=== PATIENT | female | born 1995 | race Caucasian/White ===

== ENCOUNTER 2024-11-05 13:26 | Inpatient (IN) ==
--- NOTE | 2024-11-05 14:06 | Emergency Department Note ---
Impression & Plan Depression with suicidal ideation ED Provider Note NAME: VITALIY KUMAR AGE: 29 SEX: F : 1995 ARRIVES VIA: Walk-In INFORMANT: Patient, ED PROVIDER(S): Raudel Hadley MD CHIEF COMPLAINT: Suicidal ideation, depressed mood MEDICAL DECISION MAKING: Patient presents with the above. Blood work was obtained. Patient blood work showed a white count of 11 with a normal H&H. Platelet count of 428. The patient's kidney functions unremarkable with normal electrolytes. Urinalysis does not show evidence of blood or infection UPT negative. Salicylate Tylenol and alcohol negative. COVID-negative. UDS negative. Patient was seen medically cleared seen evaluated by psych employment case manager and referrals were made. Patient was accepted to 3 S. Discussion w/ other healthcare providers: None Prior /Outside records reviewed: None Differential diagnosis: Mood disorder, infection, hypoglycemia, electrolyte abnormalities, dehydration, medication side effect among others were considered. Diagnostics, as interpreted by me: ECG: None Medical decision rules: Suicide risk severity score Imaging studies: None HPI: Patient presents due to concern for suicidal ideation but without a specific plan. The patient states that she has been having more passive thoughts of SI. The patient states that her sleep has been poor appetite has been good. The patient does take Zoloft. Patient reports that she has been compliant. No recent changes or missed doses. Patient reportedly has been inpatient in the past. Patient denies any tobacco or drug use. Patient last used alcohol several days ago. Patient reportedly has been more irritated with her young children. PAST MEDICAL HISTORY: See Below PAST SURGICAL HISTORY: See Below SOCIAL HISTORY: See Below HOME MEDICATIONS: See Below ALLERGIES: See Below VITALS: See Below PHYSICAL EXAMINATION: GENERAL: NAD, non-toxic. EYE EXAM: Normal conjunctiva. PERRL, no anisocoria and EOM's grossly intact w/o pain. OROPHARYNX: Moist mucus membranes, grossly normal dentition. NECK: Trachea midline, no stridor. LUNGS: Clear to auscultation. Normal chest wall mechanics. HEART: NSR, no MRG. ABDOMEN: Abdomen soft, non-tender, no masses, no rebound or guarding. BACK: No CVA TTP. SKIN: No rashes and no bruising. UPPER EXTREMITIES: Upper extremities are grossly normal. LOWER EXTREMITIES: Grossly normal, no edema. NEURO EXAM: A&O x3, cranial nerves II-XII grossly intact, normal speech, moves all 4 extremities. Psych: SI, denies HI or AVH. Past Med/Surg History Problem List (Updated 11/05/24 @ 17:33 by Raudel Hadley MD) Depression with suicidal ideation (Acute) Social History Smoking Status: Never smoker Feels Safe at Home: Yes Gender Identity: Female Allergies Allergies Allergy/AdvReac Type Severity Reaction Status Date / Time No Known Allergies Allergy Unverified 11/05/24 15:26 Home Meds Home Medications Medication Instructions Recorded Confirmed sertraline 25 mg tablet (Zoloft) 25 mg PO DAILY 11/05/24 11/05/24 Results & Data (ED) Vital Signs Vital Signs - 24 hr 11/05/24 13:34 11/05/24 16:00 Temperature 36.7 C Temperature Source Temporal Artery Scan Pulse Rate 117 H Pulse Rate [Radial] 72 Pulse Rhythm Regular Pulse Strength Normal Respiratory Rate 20 18 Respiratory Effort / Characteristics Non-Labored Spontaneous Respiratory Depth Normal Blood Pressure 140/82 Blood Pressure [Right Arm] 104/59 L Blood Pressure Mean 101 Blood Pressure Mean [Right Arm] 74 Blood Pressure Position Sitting Pulse Oximetry 100 96 Oxygen Delivery Method Room Air Room Air Sepsis Recent Fever Within 48 Hours No Sepsis New/Unexplained Change in Mental Status N/A Sepsis Action Taken by Nursing No Action Required Home Medications Current Medication List: was personally reviewed by me Laboratory Data Attestation: I reviewed the patient's lab results. 11/05/24 13:56 11/05/24 13:56 Lab Results 11/05/24 11/05/24 Range/Units 13:40 13:56 WBC 11.59 H (4.8-10.8) K/ul RBC 5.13 (4.20-5.40) M/uL Hgb 15.6 (12.0-16.0) g/dl Hct 46.1 (37.0-47.0) % MCV 89.9 (80.0-100.0) fL MCH 30.4 (25.0-34.0) pg MCHC 33.8 (32.0-36.0) g/dL RDW Std Deviation 41.0 (36.4-46.3) fL RDW Coeff of [place] 12.5 (11.5-14.5) % Plt Count 420 H (130-400) K/uL MPV 8.8 L (9.4-12.4) fL Immature Gran % (Auto) 0.3 % Neut % (Auto) 79.9 % Lymph % (Auto) 13.4 % [place] % (Auto) 5.0 % Eos % (Auto) 0.9 % Baso % (Auto) 0.5 % Neut # (Auto) 9.26 H (1.40-6.50) K/uL Lymph # (Auto) 1.55 (1.20-3.40) K/uL [place] # (Auto) 0.58 (0.11-0.59) K/uL Eos # (Auto) 0.11 (0.00-0.50) K/uL Baso # (Auto) 0.06 (0.00-0.20) K/uL Immature Gran # (Auto) 0.03 (0.01-0.20) K/uL Sodium 140 (136-145) mmol/L Potassium 4.1 (3.5-5.1) mmol/L Chloride 106 (98-107) mmol/L Carbon Dioxide 26 (21-32) mmol/L Anion Gap 8 (3-11) BUN 9 (6-23) mg/dl Creatinine 0.75 (0.6-1.2) mg/dl Est Cr Clr Drug Dosing 85.9 ml/min eGFR 111.84 BUN/Creatinine Ratio 12.0 (10-20) Glucose 76 (70-99(Fasting)) mg/dl Calcium 9.5 (8.6-10.3) mg/dl Total Bilirubin 0.5 (0.2-1.0) mg/dl AST 21 (13-39) U/L ALT 23 (7-52) U/L Alkaline Phosphatase 40 (34-104) U/L Total Protein 7.7 (6.0-8.3) gm/dl Albumin 4.9 (3.4-5.0) gm/dl Globulin 2.8 (2.5-4.0) gm/dl Albumin/Globulin Ratio 1.8 (0.9-2) TSH 0.737 (0.300-4.500) uIu/ml Urine Color Yellow Urine Appearance Clear (Clear) Urine pH 7.0 (4.5-7.5) Ur Specific [place] 1.013 (1.000-1.030) Urine Protein Negative (Negative) Urine Glucose (UA) Negative (Negative) Urine Ketones Negative (Negative) Urine Blood Negative (Negative) Urine Nitrite Negative (Negative) Urine Bilirubin Negative (Negative) Urine Urobilinogen Negative (Negative) Ur Leukocyte Esterase Negative (Negative) Urine Test Negative (Negative) Salicylates < 3.0 L (3.0-30) mg/dl Urine Opiates Screen Neg (Neg) Ur Methadone, Qual Neg (Neg) Urine Fentanyl Screen Neg (Neg) Acetaminophen < 3 L (10-30) ug/ml Urine Barbiturates Neg (Neg) Ur Phencyclidine (PCP) Neg (Neg) U Amphetamin/Meth Scrn Neg (Neg) MDMA (Ecstasy) Screen Neg (Neg) U Benzodiazepines Scrn Neg (Neg) Ur Cocaine Metabolite Neg (Neg) U Marijuana (THC) Screen Neg (Neg) Ethyl Alcohol mg/dL < 10.0 (<10.0) mg/dl SARS-CoV-2, RNA, NAAT NEGATIVE (NEGATIVE) Discharge Plan Visit Data Chief Complaint: Mental Health Evaluation Stated Complaint: MENTAL BREAKDOWN ED Provider: Raudel Hadley Discharge Problem: Depression with suicidal ideation Forms Stand Alone Forms: [facility], Suicide Prevention Resources Prescriptions Prescriptions: No Action sertraline [Zoloft] 25 mg Tablet 25 mg PO DAILY Referrals Referrals: [facility] [Primary Care Provider] -
[2024-11-05 14:34] LABS: Basophils # (auto) 0.06 K/uL (0.00-0.20); Basophils % (auto) 0.5 %; Eosinophils # (auto) 0.11 K/uL (0.00-0.50); Eosinophils % (auto) 0.9 %; Hematocrit (blood only) 46.1 % (37.0-47.0); Hemoglobin 15.6 g/dl (12.0-16.0); Immature Granulocytes # (auto) 0.03 K/uL (0.01-0.20); Immature Granulocytes % (auto) 0.3 %; Lymphocytes # (auto) 1.55 K/uL (1.20-3.40); Lymphocytes % (auto) 13.4 %; Mean Corpuscular Hemoglobin 30.4 pg (25.0-34.0); Mean Corpuscular Hgb Conc 33.8 g/dL (32.0-36.0); Mean Corpuscular Volume 89.9 fL (80.0-100.0); Mean Platelet Volume 8.8 fL (9.4-12.4); Monocytes # (auto) 0.58 K/uL (0.11-0.59); Neutrophils # (auto) 9.26 K/uL (1.40-6.50); Neutrophils % (auto) 79.9 %; Platelet Count 420 K/uL (130-400); RDW Coefficient of Variation 12.5 % (11.5-14.5); Red Blood Count 5.13 M/uL (4.20-5.40); White Blood Count 11.59 K/ul (4.8-10.8)
[2024-11-05 14:43] LABS: Albumin Level 4.9 gm/dl (3.4-5.0); Bilirubin,Total 0.5 mg/dl (0.2-1.0); Calcium 9.5 mg/dl (8.6-10.3); Potassium 4.1 mmol/L (3.5-5.1)
[2024-11-05 14:48] LABS: Appearance Urine Clear (Clear); Bilirubin Urine Negative (Negative); Blood Urine Negative (Negative); Color Urine Yellow; Glucose Urine UA Negative (Negative); Ketones Urine Negative (Negative); Leukocyte Esterase Urine Negative (Negative); Nitrite Urine Negative (Negative); Protein Urine Negative (Negative); Specific Gravity Urine 1.013 (1.000-1.030); Urobilinogen Urine Negative (Negative)
[2024-11-05 14:49] LABS: Albumin Globulin Ratio 1.8 (0.9-2); Creatinine Clr Calc Pharmacy 85.9 ml/min; Globulin 2.8 gm/dl (2.5-4.0); Total Protein 7.7 gm/dl (6.0-8.3)
[2024-11-05 14:49] LABS: Pregnancy Test, Urine Negative (Negative)
[2024-11-05 15:04] LABS: Acetaminophen < 3 ug/ml (10-30); Salicylate < 3.0 mg/dl (3.0-30)
[2024-11-05 15:11] LABS: Thyroid Stimulating Hormone 0.737 uIu/ml (0.300-4.500)
[2024-11-05 15:19] LABS: Amphetamines+Metham, Urine Neg (Neg); Barbiturates, Urine Neg (Neg); Benzodiazepine, Urine Neg (Neg); Cocaine, Urine Neg (Neg); Fentanyl, Urine Neg (Neg); MDMA (Ecstacy), Urine Neg (Neg); Marijuana, Urine Neg (Neg); Methadone, Urine Neg (Neg); Opiate, Urine Neg (Neg); Phencyclidine, Urine Neg (Neg)
--- NOTE | 2024-11-05 22:48 | Emergency Department Note ---
ED Visit Note Patient was signed out to me at change of shift by Dr. Hadley. Patient was accepted for inpatient psychiatric care under 201 here [facility] in the behavioral health unit (3 S[address] 201 was signed by myself. Patient was transferred in stable condition for further care. .
[2024-11-05] MEDS ORDERED: BISMUTH SUBSALICYLATE 262 MG CHEW PO PRN (23:22)
[2024-11-05] MEDS ORDERED: ALUMINUM/MAGNESIUM SUSP 30 ML UDC PO PRN (23:22)
[2024-11-05] MEDS ORDERED: MAGNESIUM HYDROXIDE SUSP 30 ML UDC PO PRN (23:22)
[2024-11-05] MEDS ORDERED: SODIUM CHLORIDE 0.65% NA SOLN 45 ML (OCEAN) PRN (23:22)
[2024-11-05] MEDS: hydrOXYzine HCl 25 MG TAB PO PRN (23:56)
--- NOTE | 2024-11-06 09:56 | History & Physical ---
Date of Service November 06, 2024 Impression / Recommendations Impression VITALIY KUMAR is a 29-year-old woman who currently lives in [place] with her , and two children, has a history of trauma, depression and was admitted on 11/05/24 18:26 on a 201 voluntary commitment for depression and SI with plans. Diagnostically consistent with major depressive disorder, KEIRA, and likely complex PTSD. May be a component of BPD vs complex PTSD contributing to periods of anger when feeling overwhelmed. R/o OCD component. Discussed medication treatment options in detail. Discussed risks, benefits and alternatives. Patient would like to start and consented to increasing sertraline for MDD/KEIRA and starting mirtazapine for insomnia/depression/anxiety. Reviewed side effects including but not limited to: GI, GALEAS, sexual side effects, and counseled on black box warning of potential for emergence of or increased SI and need to let staff know should this occur or should they feel unsafe. Also discussed importance of seeking emergency care following discharge if this side effect occurs in the future. Also reviewed side effects including but not limited to sedation, increased appetite. Overall I spent a total of 75 minutes for this admission including review of chart records, review of labwork, direct evaluation of the patient, counseling the patient, ordering medication, risk assessment, discussion with the psychiatric liason RN and documentation in the electronic health record. (1) Depression with suicidal ideation: (2) MDD (major depressive disorder), recurrent episode, severe: (3) KEIRA (generalized anxiety disorder): (4) Post traumatic stress disorder (PTSD): Plan 11/06/2024: The patient was admitted to the [facility] unit) on q15 min checks (behavioral with suicide precautions) for safety. The patient will participate in group, recreational, and milieu therapies and will be offered additional individual and family sessions as clinically appropriate. -sertraline 50mg daily -mirtazapine 15mg HS -symptom questionnaires: Sandra BPD, trauma questionnaire, CARLOS score -outpt therapy referrals-ideally tf-CBT focus Inventory Assets Strengths: supportive relationships, willing to get treatment Needs: safety and stabilization, medication adjustment, additional coping skills, increased outpatient services Suicide Risk Level Suicide Risk Level: High-Moderate (q15 min suicide checks) (Si with plans prior to admission, but feels safe in the hospital, feels able to ask for support if needed) Risk Factors Assessment Male: No : Yes Do You Have Access To A Gun?: No (secured by , removed from home) Health Problems: No Mental Health Diagnoses: Yes Substance Use Disorders: No Previous Attempt: No Family History of Suicide: No Previous Psychiatric Hospitalization: Yes Hopelessness: Yes Protective Factors Assessment Buddhism Beliefs: Yes : Yes Responsible for Young Children: Yes 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 Chief Complaint "It's been so hard to control my mind, it's like war in my head". History of Present Illness She presents for psychiatric admission for worsening depression and SI with multiple possible plans. She notes "I just need my brain to calm down, it just goes and goes and goes". She notes "I'm not even fit to be around my kids right now because the smallest thing can trigger me to just stop". She notes how deeply she loves her children but feels they've felt like they have to "step on eggshells around me". She describes she can be quick to anger and that "I have to be right" and can be impulsive but also notes that she has become very irritable as the depression has worsened. She notes "I have a war in my head all day every day", she notes the thoughts are often about her being worthless or worrying that her will leave her. Describes that "recently it's been tearing down myself with my own mind". She notes by evening "I'm worn out and I can't do it anymore". Her depression has been worsening over the last year and over the last six months has significantly intensified. She endorses depressive symptoms including anhedonia, decreased motivation, self-guilt, helplessness, hopelessness, decreased energy, decreased appetite, and decreased sleep typically about 3 hours with sleep onset insomnia and multiple awakenings. SI started about 6 months ago but really worsened to the point of daily thoughts over the last month with thoughts of shooting herself or crashing the car. She has been having thoughts that her kids would be "better off without" her. She also endorses symptoms of anxiety including generalized worries, shakiness, easily overwhelmed and history of panic attacks but none recently. Sometimes gets sharp chest pain with intense anxiety. History of significant trauma and sometimes will have dreams and wake up in a startle. This has worsened as the depression has intensified and typically occurring about three times per week. She was recently prescribed sertraline about 1.5 weeks ago, she hasn't noticed any side effects nor benefits so far. Psychiatric ROS notable for no current nor history of symptoms of tsering, psychosis. History of difficulty eating at school when bullied and would often avoid breakfast and sometimes would throw up due to distress from the bullying. History of self-harm by cutting and biting, last occurred many years ago. Past Psychiatric History Previous Psych History: depression in youth related to trauma, worsened mood after her children were born Current Psychiatric Diagnosis: Unspecified depressive d/o Outpatient Services: [facility] no current therapist Previous Psych Admissions: [facility] in 2017 for SI Do You Have Access To A Gun?: No (secured by , removed from home) History of Previous Suicide Attempt: No Past Medication Trials: hx Seroquel, [place] and Lexapro--stopped in 2018, she recalls "I was mostly in a zoombie mode" Started sertraline 25 mg about 1.5 weeks ago Past Head Trauma/Neuro History possible concussion after an ice skating accident in third grade Allergies Allergy/AdvReac Type Severity Reaction Status Date / Time No Known Allergies Allergy Unverified 11/05/24 15:26 Home Medications Medication Instructions Recorded Confirmed Type sertraline 25 mg tablet (Zoloft) 25 mg PO DAILY 11/05/24 11/05/24 History Family History Family History of: Doesn't Know Alcohol History Hx of Alcohol Use Over the Past 12 Months: Yes (1-2 seltzers) AUDIT Total Score: 5 hasn't had any alcohol in about a week, sometimes will drink casually in the evenings recently about 5 evenings per week. She recently felt like she was using alcohol to relax and "be happy" Smoking Use Have You Smoked or Used Tobacco Products in the Last 30 Days: No Smoking Status: Former smoker (quit vaping about 2 weeks ago) Substance History Hx of Prescription Med Misuse Over the Past 12 Months: No Hx of Over the Counter Med Misuse Over the Past 12 Months: No Hx of Inhalent Misuse Over the Past 12 Months: No Hx of Organic Substance Use Over the Past 12 Months: No Hx of Illegal Substances/Street Drug Use Over Past 12 Months: No Problems as a Result of Past Substance Use: None Identified Personal History Living Arrangements: Home Childhood: Raised as a M[employer]onite, early life trauma, no longer in contact with her family. Marital Status: Number Of Children: 2-ages 4 & 2 Beliefs That Will Affect Care: None Hx Traumatic Life Events: Yes (early life trauma) Patient History Social History Smoking Status: Former smoker (quit vaping about 2 weeks ago) Preferred Language: Uzbek Communication Ability: Effective Insert Molding Operator Required: No Beliefs That Will Affect Care: None Feels Safe at Home: Yes Gender Identity: Female Assistive Devices: None Review of Systems Review of Systems: All systems reviewed & are unremarkable except as noted in HPI & below Physical Exam Psychiatric: Orientation: alert and oriented x 3 Apperance: appropriately dressed and appropriately groomed Eye Contact: good eye contact Motor Behavior: no abnormal motor movements Speech: normal rate/rhythm/volume of speech Affect: + depressed affect, + anxious affect and + tearful affect Mood: + depressed mood and + anxious mood Thought Process: goal directed thought process Thought Content: + cognitive distortions, reality based without delusions, + hopelessness and + worthlessness Suicidal Thoughts: denies suicidal intent; + reports suicidal thoughts and + reports suicidal plan (none for hospital, outside multiple plans) Homicidal Thoughts: denies homicidal thoughts Hallucinations: no auditory hallucinations and no visual hallucinations Cognition: recent memory grossly intact, remote memory grossly intact, attention grossly intact and language grossly intact Estimated Intelligence: consistent with education level Insight: + fair insight Judgment: + fair judgement Vital Signs (Past 24 Hours): Last Vital Signs Temp 37.0 C 11/06/24 06:25 Pulse 51 L 11/06/24 06:25 Resp 18 11/06/24 06:25 BP 104/69 11/06/24 06:27 Pulse Ox 97 11/06/24 06:25 O2 Del Method Room Air 11/06/24 06:25 Exam Statement: A physical exam was performed in the ED by Dr. Hadley for the purposes of medical clearance. I accept that physical as correct and adequate for the purposes of the inpatient physical exam. Results & Data ([facility]) Laboratory Results Laboratory Results - last 24 hr 11/05/24 11/05/24 13:40 13:56 WBC 11.59 H RBC 5.13 Hgb 15.6 Hct 46.1 MCV 89.9 MCH 30.4 MCHC 33.8 RDW Std Deviation 41.0 RDW Coeff of [place] 12.5 Plt Count 420 H MPV 8.8 L Immature Gran % (Auto) 0.3 Neut % (Auto) 79.9 Lymph % (Auto) 13.4 [place] % (Auto) 5.0 Eos % (Auto) 0.9 Baso % (Auto) 0.5 Neut # (Auto) 9.26 H Lymph # (Auto) 1.55 [place] # (Auto) 0.58 Eos # (Auto) 0.11 Baso # (Auto) 0.06 Immature Gran # (Auto) 0.03 Sodium 140 Potassium 4.1 Chloride 106 Carbon Dioxide 26 Anion Gap 8 BUN 9 Creatinine 0.75 Est Cr Clr Drug Dosing 85.9 eGFR 111.84 BUN/Creatinine Ratio 12.0 Glucose 76 Calcium 9.5 Total Bilirubin 0.5 AST 21 ALT 23 Alkaline Phosphatase 40 Total Protein 7.7 Albumin 4.9 Globulin 2.8 Albumin/Globulin Ratio 1.8 TSH 0.737 Urine Color Yellow Urine Appearance Clear Urine pH 7.0 Ur Specific [place] 1.013 Urine Protein Negative Urine Glucose (UA) Negative Urine Ketones Negative Urine Blood Negative Urine Nitrite Negative Urine Bilirubin Negative Urine Urobilinogen Negative Ur Leukocyte Esterase Negative Urine Test Negative Salicylates < 3.0 L Urine Opiates Screen Neg Ur Methadone, Qual Neg Urine Fentanyl Screen Neg Acetaminophen < 3 L Urine Barbiturates Neg Ur Phencyclidine (PCP) Neg U Amphetamin/Meth Scrn Neg MDMA (Ecstasy) Screen Neg U Benzodiazepines Scrn Neg Ur Cocaine Metabolite Neg U Marijuana (THC) Screen Neg Ethyl Alcohol mg/dL < 10.0 SARS-CoV-2, RNA, NAAT NEGATIVE Current Inpatient Medications Current Inpatient Medications: Current Inpatient Medications Acetaminophen (Acetaminophen 325 Mg Tab) 650 mg PO Q4H PRN PRN Reason: Headache or Minor Fever Stop: 12/05/24 23:21 Al Hydrox/Mg Hydrox/Simethicone (Aluminum/Magnesium Susp 30 Ml Udc) 30 ml PO Q4H PRN PRN Reason: GI Upset Stop: 12/05/24 23:21 Bismuth Subsalicylate (Bismuth Subsalicylate 262 Mg Chew) 2 tab PO Q30M PRN PRN Reason: Loose Stool/Diarrhea Stop: 12/05/24 23:21 Hydroxyzine HCl (Hydroxyzine Hcl 25 Mg Tab) 50 mg PO HSZ PRN PRN Reason: Insomnia Stop: 12/05/24 23:21 Last Admin: 11/05/24 23:56 Dose: 50 mg Hydroxyzine HCl (Hydroxyzine Hcl 25 Mg Tab) 25 mg PO Q4H PRN PRN Reason: Anxiety Stop: 12/05/24 23:21 Magnesium Hydroxide (Magnesium Hydroxide Susp 30 Ml Udc) 30 ml PO DAILY PRN PRN Reason: Constipation Stop: 12/05/24 23:21 Sodium Chloride (Sodium Chloride 0.65% Na Soln 45 Ml ([place])) 1 - 2 sprays NA PRN PRN PRN Reason: Nasal Dryness/Congestion Stop: 12/05/24 23:21
[2024-11-06] MEDS: SERTRALINE HCL 50 MG TABLET PO SCH (12:45)
[2024-11-06] MEDS: MIRTAZAPINE TAB 15 MG TAB PO SCH (20:55)
--- NOTE | 2024-11-07 09:36 | Psychiatric Progress Note ---
Date of Service November 07, 2024 Impression / Recommendations Impression VITALIY KUMAR is a 29-year-old woman who currently lives in [place] with her , and two children, has a history of trauma, depression and was admitted on 11/05/24 18:26 on a 201 voluntary commitment for depression and SI with plans. Diagnostically consistent with major depressive disorder, KEIRA, and likely complex PTSD. May be a component of BPD vs complex PTSD contributing to periods of anger when feeling overwhelmed. R/o OCD component. A: Mood slightly more hopeful but still with severe depression, anxiety and SI. Tolerating medication changes, slept well with addition of mirtazapine which is making her a little bit better. Reviewed symptom questionnaires, consistent with significant component of symptoms from past trauma, CARLOS score of 5. BPD screen positive but largely due to overlap with trauma symptoms so felt to be more consistent with complex PTSD. Overall, I spent a total of 35 minutes on this case including meeting with the patient, reviewing the chart, nursing report, multidisciplinary team meeting, orders, and documentation. (1) Depression with suicidal ideation: (2) MDD (major depressive disorder), recurrent episode, severe: (3) KEIAR (generalized anxiety disorder): (4) Post traumatic stress disorder (PTSD): Plan 11/07/2024: Continue current medications and tx plan 11/06/2024: The patient was [facility] to the [facility] on q15 min checks (behavioral with suicide precautions) for safety. The patient will participate in group, recreational, and milieu therapies and will be offer ed additional individual and family sessions as clinically appropriate. -sertraline 50mg daily -mirtazapine 15mg HS -symptom questionnaires: Sandra BPD, trauma questionnaire, CARLOS score -outpt therapy referrals-ideally tf-CBT focus Inventory Assets Strengths: supportive relationships, willing to get treatment Needs: safety and stabilization, medication adjustment, additional coping skills, increased outpatient services Suicide Risk Level Suicide Risk Level: High-Moderate (q15 min suicide checks) (Si with plans prior to admission, but feels safe in the hospital, feels able to ask for support if needed) Suicide Risk Level Comments: Risk Factors Assessment Male: No : Yes Do You Have Access To A Gun?: No Health Problems: No Mental Health Diagnoses: Yes Substance Use Disorders: No Previous Attempt: No Family History of Suicide: No Previous Psychiatric Hospitalization: Yes Hopelessness: Yes Protective Factors Assessment Muslim Beliefs: Yes : Yes Responsible for Young Children: Yes 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 Chief Complaint "I was in denial of how bad I was". Review of Systems Sleep Information Total Hours of Sleep: 7 Meal Information Percent Meal Consumed - Breakfast: 100 Percent Meal Consumed - Lunch: 100 Percent Meal Consumed - Dinner: 100 Subjective Subjective Patient was seen & assessed and interval progress reviewed with nursing. Facetimed her kids this morning. Rated her mood as "lonely, hopeful and nervous". Has been quiet but attending groups and out of her room. Today reports her mood is "more hopeful". She reflects on struggling with the stigma of being in the hospital and also notes "I was in denial of how bad I was". She is glad to be here and is focusing on thinking about her mental health and treating her brain just like she would other physical illnesses. She is glad to be "eating and sleeping" better after the addition of mirtazapine last night. She slept well without any awakenings overnight. SI is still present but " a little less today". Notes she had a thought of how if the windows opened here she would be able to jump this morning. Reviewed symptom questionnaires and prevalence of trauma symptoms. Physical Exam Psychiatric Orientation: alert and oriented x 3 Apperance: appropriately dressed and appropriately groomed Eye Contact: good eye contact Motor Behavior: no abnormal motor movements Speech: normal rate/rhythm/volume of speech Affect: + anxious affect and + constricted affect Mood: + depressed mood and + anxious mood Thought Process: goal directed thought process Thought Content: + cognitive distortions, reality based without delusions and + worthlessness Suicidal Thoughts: denies suicidal intent; + reports suicidal thoughts and + re ports suicidal plan (none for hospital, outside multiple plans) Homicidal Thoughts: denies homicidal thoughts Hallucinations: no auditory hallucinations and no visual hallucinations Cognition: recent memory grossly intact, remote memory grossly intact, attention grossly intact and language grossly intact Estimated Intelligence: consistent with education level Insight: + fair insight Judgment: + fair judgement Vital Signs (Past 24 Hours) Last Vital Signs Temp 36.4 C L 11/07/24 06:00 Pulse 5 L 11/07/24 06:00 Resp 16 11/07/24 06:00 BP 108/72 11/07/24 06:08 Pulse Ox 98 11/07/24 06:00 O2 Del Method Room Air 11/07/24 06:00 Results & Data ([facility]) Current Inpatient Medications Current Inpatient Medications: Current Inpatient Medications Acetaminophen (Acetaminophen 325 Mg Tab) 650 mg PO Q4H PRN PRN Reason: Headache or Minor Fever Stop: 12/05/24 23:21 Al Hydrox/Mg Hydrox/Simethicone (Aluminum/Magnesium Susp 30 Ml Udc) 30 ml PO Q4H PRN PRN Reason: GI Upset Stop: 12/05/24 23:21 Bismuth Subsalicylate (Bismuth Subsalicylate 262 Mg Chew) 2 tab PO Q30M PRN PRN Reason: Loose Stool/Diarrhea Stop: 12/05/24 23:21 Hydroxyzine HCl (Hydroxyzine Hcl 25 Mg Tab) 50 mg PO HSZ PRN PRN Reason: Insomnia Stop: 12/05/24 23:21 Last Admin: 11/05/24 23:56 Dose: 50 mg Hydroxyzine HCl (Hydroxyzine Hcl 25 Mg Tab) 25 mg PO Q4H PRN PRN Reason: Anxiety Stop: 12/05/24 23:21 Magnesium Hydroxide (Magnesium Hydroxide Susp 30 Ml Udc) 30 ml PO DAILY PRN PRN Reason: Constipation Stop: 12/05/24 23:21 Mirtazapine (Mirtazapine Tab 15 Mg Tab) 15 mg PO HS TREVON Stop: 12/06/24 21:59 Last Admin: 11/06/24 20:55 Dose: 15 mg Sertraline HCl (Sertraline Hcl 50 Mg Tablet) 50 mg PO DAILY TREVON Stop: 12/06/24 12:29 Last Admin: 11/07/24 08:44 Dose: 50 mg Sodium Chloride (Sodium Chloride 0.65% Na Soln 45 Ml ([place])) 1 - 2 sprays NA PRN PRN PRN Reason: Nasal Dryness/Congestion Stop: 12/05/24 23:21 Mental Health & Subst Abuse Tx Therapist Name of Therapist: Being set up with [facility] [facility] Name of [facility]: None
[2024-11-07] MEDS: hydrOXYzine HCl 25 MG TAB PO PRN (13:32)
--- NOTE | 2024-11-08 09:05 | Psychiatric Progress Note ---
Date of Service November 08, 2024 Impression / Recommendations Impression VITALIY KUMAR is a 29-year-old woman who currently lives in [place] with her , and two children, has a history of trauma, depression and was admitted on 11/05/24 18:26 on a 201 voluntary commitment for depression and SI with plans. Diagnostically consistent with major depressive disorder, KEIRA, and likely complex PTSD. May be a component of BPD vs complex PTSD contributing to periods of anger when feeling overwhelmed. R/o OCD component. A:Mood gradually improving, showing more affect today with a few smiles, tolerating medications and finding them especially helpful for sleep and appetite. Processing beliefs about mental health and ways to set boundaries. Overall, I spent a total of 35 minutes on this case including meeting with the patient, reviewing the chart, nursing report, multidisciplinary team meeting, orders, and documentation. (1) Depression with suicidal ideation: (2) MDD (major depressive disorder), recurrent episode, severe: (3) KEIRA (generalized anxiety disorder): (4) Post traumatic stress disorder (PTSD): Plan 11/08/2024: Continue current medications and tx plan. 11/07/2024: Continue current medications and tx plan 11/06/2024: The patient was admitted to the [facility]) on q15 min checks (behavioral with suicide precautions) for safety. The patient will participate in group, recreational, and milieu therapies and will be offered additional individual and family sessions as clinically appropriate. -sertraline 50mg daily -mirtazapine 15mg HS -symptom questionnaires: Sandra BPD, trauma questionnaire, CARLOS score -outpt therapy referrals-ideally tf-CBT focus Inventory Assets Strengths: supportive relationships, willing to get treatment Needs: safety and stabilization, medication adjustment, additional coping skills, increased outpatient services Suicide Risk Level Suicide Risk Level: Moderate (q15 min suicide checks) (SI with plans prior to admission, but mood improving, SI lessening, feels safe in the hospital, feels able to ask for support if needed) Suicide Risk Level Comments: Risk Factors Assessment Male: No : Yes Do You Have Access To A Gun?: No Health Problems: No Mental Health Diagnoses: Yes Substance Use Disorders: No Previous Attempt: No Family History of Suicide: No Previous Psychiatric Hospitalization: Yes Hopelessness: Yes Protective Factors Assessment Mosque Beliefs: Yes : Yes Responsible for Young Children: Yes 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 Chief Complaint "Pretty good". Review of Systems Sleep Information Total Hours of Sleep: 7 Meal Information Percent Meal Consumed - Breakfast: 100 Percent Meal Consumed - Lunch: 100 Percent Meal Consumed - Dinner: 100 Subjective Subjective Patient was seen & assessed and interval progress reviewed with treatment team. She got very anxious and was craving alcohol in anticipation of potential visit of her mother and sister. She got a prn Vistaril. Rated her mood as "content and calm". Continues to sleep well since mirtazapine was started. She is feeling more hopeful. More affect today with some smiles. Processed how she is trying to set more boundaries and impact of her upbringing and family's beliefs about mental health adding to the stigma of her discussing her symptoms and seeking treatment. She discussed how within the [facility] and [facility], mental health conditions are often viewed as being caused by something the individual did wrong or because they are not following all the rules. She's working to validate her emotions and remind herself that she did not cause her depression. Physical Exam Psychiatric Orientation: alert and oriented x 3 Apperance: appropriately dressed and appropriately groomed Eye Contact: good eye contact Motor Behavior: no abnormal motor movements Speech: normal rate/rhythm/volume of speech Affect: + anxious affect Mood: + depressed mood and + anxious mood Thought Process: goal directed thought process Thought Content: + cognitive distortions, reality based without delusions and + worthlessness Suicidal Thoughts: denies suicidal plan and denies suicidal intent; + reports suicidal thoughts (lessening) Homicidal Thoughts: denies homicidal thoughts Hallucinations: no auditory hallucinations and no visual hallucinations Cognition: recent memory grossly intact, remote memory grossly intact, attention grossly intact and language grossly intact Estimated Intelligence: consistent with education level Insight: + fair insight Judgment: + fair judgement Vital Signs (Past 24 Hours) Last Vital Signs Temp 36.6 C 11/08/24 06:27 Pulse 63 11/08/24 06:29 Resp 16 11/08/24 06:27 BP 93/61 L 11/08/24 06:29 Pulse Ox 99 11/08/24 06:27 O2 Del Method Room Air 11/08/24 06:27 Results & Data ([facility]) Current Inpatient Medications Current Inpatient Medications: Current Inpatient Medications Acetaminophen (Acetaminophen 325 Mg Tab) 650 mg PO Q4H PRN PRN Reason: Headache or Minor Fever Stop: 12/05/24 23:21 Al Hydrox/Mg Hydrox/Simethicone (Aluminum/Magnesium Susp 30 Ml Udc) 30 ml PO Q4H PRN PRN Reason: GI Upset Stop: 12/05/24 23:21 Bismuth Subsalicylate (Bismuth Subsalicylate 262 Mg Chew) 2 tab PO Q30M PRN PRN Reason: Loose Stool/Diarrhea Stop: 12/05/24 23:21 Hydroxyzine HCl (Hydroxyzine Hcl 25 Mg Tab) 50 mg PO HSZ PRN PRN Reason: Insomnia Stop: 12/05/24 23:21 Last Admin: 11/05/24 23:56 Dose: 50 mg Hydroxyzine HCl (Hydroxyzine Hcl 25 Mg Tab) 25 mg PO Q4H PRN PRN Reason: Anxiety Stop: 12/05/24 23:21 Last Admin: 11/07/24 13:32 Dose: 25 mg Magnesium Hydroxide (Magnesium Hydroxide Susp 30 Ml Udc) 30 ml PO DAILY PRN PRN Reason: Constipation Stop: 12/05/24 23:21 Mirtazapine (Mirtazapine Tab 15 Mg Tab) 15 mg PO HS TREVON Stop: 12/06/24 21:59 Last Admin: 11/07/24 20:52 Dose: 15 mg Sertraline HCl (Sertraline Hcl 50 Mg Tablet) 50 mg PO DAILY TREVON Stop: 12/06/24 12:29 Last Admin: 11/08/24 08:07 Dose: 50 mg Sodium Chloride (Sodium Chloride 0.65% Na Soln 45 Ml ([place])) 1 - 2 sprays NA PRN PRN PRN Reason: Nasal Dryness/Congestion Stop: 12/05/24 23:21 Mental Health & Subst Abuse Tx Therapist Name of Therapist: Being set up with [facility] Name of [facility]: None
--- NOTE | 2024-11-09 09:01 | Psychiatric Progress Note ---
Date of Service November 09, 2024 Impression / Recommendations Impression VITALIY KUMAR is a 29-year-old woman who currently lives in [place] with her , and two children, has a history of trauma, depression and was admitted on 11/05/24 18:26 on a 201 voluntary commitment for depression and SI with plans. Diagnostically consistent with major depressive disorder, KEIRA, and likely complex PTSD. May be a component of BPD vs complex PTSD contributing to periods of anger when feeling overwhelmed. R/o OCD component. A:Mood improving, still with depression and anxiety but lessening. Tolerating medications well without side effects. Discussed ways to challenge anxious thoughts and utilize CBT skills. Overall, I spent a total of 25 minutes on this case including meeting with the patient, reviewing the chart, nursing report, multidisciplinary team meeting, orders, and documentation. (1) Depression with suicidal ideation: (2) MDD (major depressive disorder), recurrent episode, severe: (3) KEIRA (generalized anxiety disorder): (4) Post traumatic stress disorder (PTSD): Plan 11/09/2024: Continue current medications and tx plan. SW working on options for outpatient therapy-running into barriers of excessively long wait lists due to insurance coverage 11/08/2024: Continue current medications and tx plan. 11/07/2024: Continue current medications and tx plan 11/06/2024: The patient was admitted to the [facility] ([facility]) on q15 min checks (behavioral with suicide precautions) for safety. The patient will participate in group, recreational, and milieu therapies and will be offered additional individual and family sessions as clinically appropriate. -sertraline 50mg daily -mirtazapine 15mg HS -symptom questionnaires: Sandra BPD, trauma questionnaire, CARLOS score -outpt therapy referrals-ideally tf-CBT focus Inventory Assets Strengths: supportive relationships, willing to get treatment Needs: safety and stabilization, medication adjustment, additional coping skills, increased outpatient services Suicide Risk Level Suicide Risk Level: Moderate (q15 min suicide checks) (SI with plans prior to admission, but mood improving, SI lessening, feels safe in the hospital, feels able to ask for support if needed) Suicide Risk Level Comments: Risk Factors Assessment Male: No : Yes Do You Have Access To A Gun?: No Health Problems: No Mental Health Diagnoses: Yes Substance Use Disorders: No Previous Attempt: No Family History of Suicide: No Previous Psychiatric Hospitalization: Yes Hopelessness: Yes Protective Factors Assessment Alevism Beliefs: Yes : Yes Responsible for Young Children: Yes 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 Chief Complaint "Good". Review of Systems Sleep Information Total Hours of Sleep: 6.5 Meal Information Percent Meal Consumed - Breakfast: 100 Percent Meal Consumed - Lunch: 100 Percent Meal Consumed - Dinner: 100 Subjective Subjective Patient was seen & assessed and interval progress reviewed with nursing and social work. Attending groups. Facetimed with her last evening. Reported her mood as "tired but happy" last evening. Today reports some anxiety this morning related to not being to reach her kids grandmother on the phone to see how they are doing which brings up fears about their safety. But she was able to use coping skills whereas prior to admission she reports this would have caused her thoughts to spiral all day. She continues to find the medications very helpful. Feeling more hopeful. Some SI yesterday, none so far today. Overall feels that she is "so much calmer". Physical Exam Psychiatric Orientation: alert and oriented x 3 Apperance: appropriately dressed and appropriately groomed Eye Contact: good eye contact Motor Behavior: no abnormal motor movements Speech: normal rate/rhythm/volume of speech Affect: + anxious affect Mood: + depressed mood and + anxious mood Thought Process: goal directed thought process Thought Content: + cognitive distortions, reality based without delusions and + worthlessness Suicidal Thoughts: denies suicidal plan and denies suicidal intent; + reports suicidal thoughts (fleeting yesterday, none today ) Homicidal Thoughts: denies homicidal thoughts Hallucinations: no auditory hallucinations and no visual hallucinations Cognition: recent memory grossly intact, remote memory grossly intact, attention grossly intact and language grossly intact Estimated Intelligence: consistent with education level Insight: + fair insight Judgment: + fair judgement Vital Signs (Past 24 Hours) Last Vital Signs Temp 36.9 C 11/09/24 06:47 Pulse 76 11/09/24 06:48 Resp 16 11/09/24 06:47 BP 108/66 11/09/24 06:48 Pulse Ox 99 11/08/24 06:27 O2 Del Method Room Air 11/08/24 06:27 Results & Data ([facility]) Current Inpatient Medications Current Inpatient Medications: Current Inpatient Medications Acetaminophen (Acetaminophen 325 Mg Tab) 650 mg PO Q4H PRN PRN Reason: Headache or Minor Fever Stop: 12/05/24 23:21 Al Hydrox/Mg Hydrox/Simethicone (Aluminum/Magnesium Susp 30 Ml Udc) 30 ml PO Q4H PRN PRN Reason: GI Upset Stop: 12/05/24 23:21 Bismuth Subsalicylate (Bismuth Subsalicylate 262 Mg Chew) 2 tab PO Q30M PRN PRN Reason: Loose Stool/Diarrhea Stop: 12/05/24 23:21 Hydroxyzine HCl (Hydroxyzine Hcl 25 Mg Tab) 50 mg PO HSZ PRN PRN Reason: Insomnia Stop: 12/05/24 23:21 Last Admin: 11/05/24 23:56 Dose: 50 mg Hydroxyzine HCl (Hydroxyzine Hcl 25 Mg Tab) 25 mg PO Q4H PRN PRN Reason: Anxiety Stop: 12/05/24 23:21 Last Admin: 11/07/24 13:32 Dose: 25 mg Magnesium Hydroxide (Magnesium Hydroxide Susp 30 Ml Udc) 30 ml PO DAILY PRN PRN Reason: Constipation Stop: 12/05/24 23:21 Mirtazapine (Mirtazapine Tab 15 Mg Tab) 15 mg PO HS TREVON Stop: 12/06/24 21:59 Last Admin: 11/08/24 21:17 Dose: 15 mg Sertraline HCl (Sertraline Hcl 50 Mg Tablet) 50 mg PO DAILY TREVON Stop: 12/06/24 12:29 Last Admin: 11/09/24 08:10 Dose: 50 mg Sodium Chloride (Sodium Chloride 0.65% Na Soln 45 Ml ([place])) 1 - 2 sprays NA PRN PRN PRN Reason: Nasal Dryness/Congestion Stop: 12/05/24 23:21 Mental Health & Subst Abuse Tx Psychiatrist Name of Psychiatrist: Rosa Grissom Psychiatrist's Date Of Appointment With Psychiatric Provider: 11/16/24 Time of Appointment with Psychiatrist: 1:00pm Psychiatric Appointment Comment: rescheduled for longer appt. time (hospital f/u) Therapist Name of Therapist: Janeen Yoo Therapist's Therapy Appointment Comment: Rayne was not aware of referral; left message to confirm waitlist Informatics Analyst Name of Informatics Analyst: None
--- NOTE | 2024-11-10 09:00 | Psychiatric Progress Note ---
Date of Service November 10, 2024 Impression / Recommendations Impression VITALIY KUMAR is a 29-year-old woman who currently lives in [place] with her , and two children, has a history of trauma, depression and was admitted on 11/05/24 18:26 on a 201 voluntary commitment for depression and SI with plans. Diagnostically consistent with major depressive disorder, KEIRA, and likely complex PTSD. May be a component of BPD vs complex PTSD contributing to periods of anger when feeling overwhelmed. R/o OCD component. A: Mood improving, still some fleeting SI but becoming easier to distract from. More future-oriented and hopeful. Overall, I spent a total of 30 minutes on this case including meeting with the patient, reviewing the chart, nursing report, multidisciplinary team meeting, orders, and documentation. (1) Depression with suicidal ideation: (2) MDD (major depressive disorder), recurrent episode, severe: (3) KEIRA (generalized anxiety disorder): (4) Post traumatic stress disorder (PTSD): Plan 11/10/2024: Continue current medications. Ongoing difficulty finding an outpatient therapist that has openings and accepts her insurance 11/09/2024: Continue current medications and tx plan. SW working on options for outpatient therapy-running into barriers of excessively long wait lists due to insurance coverage 11/08/2024: Continue current medications and tx plan. 11/07/2024: Continue current medications and tx plan 11/06/2024: The patient was admitted to the [facility] ([facility] [place] [facility]) on q15 min checks (behavioral with suicide precautions) for safety. The patient will participate in group, recreational, and milieu therapies and will be offered additional individual and family sessions as clinically appropriate. -sertraline 50mg daily -mirtazapine 15mg HS -symptom questionnaires: Sandra BPD, trauma questionnaire, CARLOS score -outpt therapy referrals-ideally tf-CBT focus Inventory Assets Strengths: supportive relationships, willing to get treatment Needs: safety and stabilization, medication adjustment, additional coping skills, increased outpatient services Suicide Risk Level Suicide Risk Level: Moderate (q15 min suicide checks) (SI with plans prior to admission, but mood improving, SI lessening, feels safe in the hospital, feels able to ask for support if needed) Suicide Risk Level Comments: Risk Factors Assessment Male: No : Yes Do You Have Access To A Gun?: No Health Problems: No Mental Health Diagnoses: Yes Substance Use Disorders: No Previous Attempt: No Family History of Suicide: No Previous Psychiatric Hospitalization: Yes Hopelessness: Yes Protective Factors Assessment Gnosticist Beliefs: Yes : Yes Responsible for Young Children: Yes 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 Chief Complaint "A little tired". Review of Systems Sleep Information Total Hours of Sleep: 7.5 Sleep Comments: Pt appears to have slept soundly throughout the night Meal Information Percent Meal Consumed - Breakfast: 100 Percent Meal Consumed - Lunch: 100 Percent Meal Consumed - Dinner: 100 Subjective Subjective Patient was seen & assessed and interval progress reviewed with treatment team. Slept well. Attending groups. Had a great visit with her last evening. Today feels a little tired, still slept well last night but it took her a little bit longer to fall asleep but once asleep slept well. Having odd dreams but not bothersome. SI continues to lessen now "fleeting" and easy to put out of her mind. Feels her mood is "calmer and my brain can think and avoid going down a rabbit hole like it was doing before". Some anticipatory anxiety about how she'll function outside of hospital setting. Physical Exam Psychiatric Orientation: alert and oriented x 3 Apperance: appropriately dressed and appropriately groomed Eye Contact: good eye contact Motor Behavior: no abnormal motor movements Speech: normal rate/rhythm/volume of speech Affect: + anxious affect Mood: + depressed mood and + anxious mood Thought Process: goal directed thought process Thought Content: + cognitive distortions and reality based without delusions Suicidal Thoughts: denies suicidal plan and denies suicidal intent; + reports suicidal thoughts (fleeting, lessening) Homicidal Thoughts: denies homicidal thoughts Hallucinations: no auditory hallucinations and no visual hallucinations Cognition: recent memory grossly intact, remote memory grossly intact, attention grossly intact and language grossly intact Estimated Intelligence: consistent with education level Insight: + fair insight Judgment: + fair judgement Vital Signs (Past 24 Hours) Last Vital Signs Temp 36.9 C 11/10/24 06:37 Pulse 75 11/10/24 06:38 Resp 16 11/10/24 06:37 BP 111/72 11/10/24 06:38 Pulse Ox 99 11/08/24 06:27 O2 Del Method Room Air 11/08/24 06:27 Results & Data ([facility]) Current Inpatient Medications Current Inpatient Medications: Current Inpatient Medications Acetaminophen (Acetaminophen 325 Mg Tab) 650 mg PO Q4H PRN PRN Reason: Headache or Minor Fever Stop: 12/05/24 23:21 Al Hydrox/Mg Hydrox/Simethicone (Aluminum/Magnesium Susp 30 Ml Udc) 30 ml PO Q4H PRN PRN Reason: GI Upset Stop: 12/05/24 23:21 Bismuth Subsalicylate (Bismuth Subsalicylate 262 Mg Chew) 2 tab PO Q30M PRN PRN Reason: Loose Stool/Diarrhea Stop: 12/05/24 23:21 Hydroxyzine HCl (Hydroxyzine Hcl 25 Mg Tab) 50 mg PO HSZ PRN PRN Reason: Insomnia Stop: 12/05/24 23:21 Last Admin: 11/05/24 23:56 Dose: 50 mg Hydroxyzine HCl (Hydroxyzine Hcl 25 Mg Tab) 25 mg PO Q4H PRN PRN Reason: Anxiety Stop: 12/05/24 23:21 Last Admin: 11/07/24 13:32 Dose: 25 mg Magnesium Hydroxide (Magnesium Hydroxide Susp 30 Ml Udc) 30 ml PO DAILY PRN PRN Reason: Constipation Stop: 12/05/24 23:21 Mirtazapine (Mirtazapine Tab 15 Mg Tab) 15 mg PO HS TREVON Stop: 12/06/24 21:59 Last Admin: 11/09/24 21:09 Dose: 15 mg Sertraline HCl (Sertraline Hcl 50 Mg Tablet) 50 mg PO DAILY TREVON Stop: 12/06/24 12:29 Last Admin: 11/09/24 08:10 Dose: 50 mg Sodium Chloride (Sodium Chloride 0.65% Na Soln 45 Ml ([place])) 1 - 2 sprays NA PRN PRN PRN Reason: Nasal Dryness/Congestion Stop: 12/05/24 23:21 Mental Health & Subst Abuse Tx Psychiatrist Name of Psychiatrist: Rosa Grissom Psychiatrist's Date Of Appointment With Psychiatric Provider: 11/16/24 Time of Appointment with Psychiatrist: 1:00pm Psychiatric Appointment Comment: rescheduled for longer appt. time (hospital f/u) Therapist Name of Therapist: Janeen Yoo Therapist's Therapy Appointment Comment: [place] was not aware of referral; left message to confirm waitlist Renal Medicine Physician Name of Renal Medicine Physician: None Post Discharge Appointments Primary Care Physician Name Of Family Doctor/PCP: Dr Cardenas [facility] Date of Future Appointment with PCP: 11/16/24 Time of Appointment with PCP: 10:15 AM Provider Appointment Comment: New PCP appointment
--- NOTE | 2024-11-11 09:10 | Psychiatric Progress Note ---
Date of Service November 11, 2024 Impression / Recommendations Impression VITALIY KUMAR is a 29-year-old woman who currently lives in [place] with her , and two children, has a history of trauma, depression and was admitted on 11/05/24 18:26 on a 201 voluntary commitment for depression and SI with plans. Diagnostically consistent with major depressive disorder, KEIRA, and likely complex PTSD. May be a component of BPD vs complex PTSD contributing to periods of anger when feeling overwhelmed. R/o OCD component. A: Mood continues to improve, denies SI today. Still trying to find an outpatient therapist who will accept her insurance. Overall, I spent a total of 25 minutes on this case including meeting with the patient, reviewing the chart, nursing report, multidisciplinary team meeting, orders, and documentation. (1) Depression with suicidal ideation: (2) MDD (major depressive disorder), recurrent episode, severe: (3) KEIRA (generalized anxiety disorder): (4) Post traumatic stress disorder (PTSD): Plan 11/11/2024: Continue current medications. 11/10/2024: Continue current medications. Ongoing difficulty finding an outpatient therapist that has openings and accepts her insurance 11/09/2024: Continue current medications and tx plan. SW working on options for outpatient therapy-running into barriers of excessively long wait lists due to insurance coverage 11/08/2024: Continue current medications and tx plan. 11/07/2024: Continue current medications and tx plan 11/06/2024: The patient was admitted to the [facility] ([facility] mental health unit) on q15 min checks (behavioral with suicide precautions) for safety. The patient will participate in group, recreational, and milieu therapies and will be offered additional individual and family sessions as clinically appropriate. -sertraline 50mg daily -mirtazapine 15mg HS -symptom questionnaires: Sandra BPD, trauma questionnaire, CARLOS score -outpt therapy referrals-ideally tf-CBT focus Inventory Assets Strengths: supportive relationships, willing to get treatment Needs: safety and stabilization, medication adjustment, additional coping skills, increased outpatient services Suicide Risk Level Suicide Risk Level: Low (q15 min observation checks) (SI with plans prior to admission, but mood improving, denies SI, feels safe in the hospital, feels able to ask for support if needed) Suicide Risk Level Comments: Risk Factors Assessment Male: No : Yes Do You Have Access To A Gun?: No Health Problems: No Mental Health Diagnoses: Yes Substance Use Disorders: No Previous Attempt: No Family History of Suicide: No Previous Psychiatric Hospitalization: Yes Hopelessness: Yes Protective Factors Assessment Orthodoxy Beliefs: Yes : Yes Responsible for Young Children: Yes 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 Chief Complaint "pretty good". Review of Systems Sleep Information Total Hours of Sleep: 7.75 Sleep Comments: Pt appears to have slept soundly throughout the night Meal Information Percent Meal Consumed - Breakfast: 100 Percent Meal Consumed - Lunch: 100 Percent Meal Consumed - Dinner: 100 Subjective Subjective Patient was seen & assessed and interval progress reviewed with nursing and social work. Attending groups, showering, exercising, facetimed with her . Reports positive mood. She slept well. No medication side effects. Uses coping skills to think about her emotions, thoughts associated with these and how they impact her behaviors. Reviewed ways to engage in self-care activities that she also involve her kids with such as exercising and coloring for mindfulness. Processing some of the anticipatory anxiety about coping outside of the hospital setting. Physical Exam Psychiatric Orientation: alert and oriented x 3 Apperance: appropriately dressed and appropriately groomed Eye Contact: good eye contact Motor Behavior: no abnormal motor movements Speech: normal rate/rhythm/volume of speech Affect: euthymic affect Mood: + anxious mood; no depressed mood Thought Process: goal directed thought process Thought Content: reality based without delusions Suicidal Thoughts: denies suicidal thoughts, denies suicidal plan and denies suicidal intent Homicidal Thoughts: denies homicidal thoughts Hallucinations: no auditory hallucinations and no visual hallucinations Cognition: recent memory grossly intact, remote memory grossly intact, attention grossly intact and language grossly intact Estimated Intelligence: consistent with education level Insight: good insight Judgment: + fair judgement Vital Signs (Past 24 Hours) Last Vital Signs Temp 36.6 C 11/11/24 06:39 Pulse 101 H 11/11/24 06:40 Resp 16 11/11/24 06:39 BP 102/61 11/11/24 06:40 Pulse Ox 99 11/08/24 06:27 O2 Del Method Room Air 11/08/24 06:27 Results & Data ([facility]) Current Inpatient Medications Current Inpatient Medications: Current Inpatient Medications Acetaminophen (Acetaminophen 325 Mg Tab) 650 mg PO Q4H PRN PRN Reason: Headache or Minor Fever Stop: 12/05/24 23:21 Al Hydrox/Mg Hydrox/Simethicone (Aluminum/Magnesium Susp 30 Ml Udc) 30 ml PO Q4H PRN PRN Reason: GI Upset Stop: 12/05/24 23:21 Bismuth Subsalicylate (Bismuth Subsalicylate 262 Mg Chew) 2 tab PO Q30M PRN PRN Reason: Loose Stool/Diarrhea Stop: 12/05/24 23:21 Hydroxyzine HCl (Hydroxyzine Hcl 25 Mg Tab) 50 mg PO HSZ PRN PRN Reason: Insomnia Stop: 12/05/24 23:21 Last Admin: 11/05/24 23:56 Dose: 50 mg Hydroxyzine HCl (Hydroxyzine Hcl 25 Mg Tab) 25 mg PO Q4H PRN PRN Reason: Anxiety Stop: 12/05/24 23:21 Last Admin: 11/07/24 13:32 Dose: 25 mg Magnesium Hydroxide (Magnesium Hydroxide Susp 30 Ml Udc) 30 ml PO DAILY PRN PRN Reason: Constipation Stop: 12/05/24 23:21 Mirtazapine (Mirtazapine Tab 15 Mg Tab) 15 mg PO HS TREVON Stop: 12/06/24 21:59 Last Admin: 11/10/24 20:54 Dose: 15 mg Sertraline HCl (Sertraline Hcl 50 Mg Tablet) 50 mg PO DAILY TREVON Stop: 12/06/24 12:29 Last Admin: 11/11/24 08:52 Dose: 50 mg Sodium Chloride (Sodium Chloride 0.65% Na Soln 45 Ml ([place])) 1 - 2 sprays NA PRN PRN PRN Reason: Nasal Dryness/Congestion Stop: 12/05/24 23:21 Mental Health & Subst Abuse Tx Psychiatrist Name of Psychiatrist: Rosa Grissom Psychiatrist's Date Of Appointment With Psychiatric Provider: 11/16/24 Time of Appointment with Psychiatrist: 1:00pm Psychiatric Appointment Comment: rescheduled for longer appt. time (hospital f/u) Therapist Name of Therapist: [facility] Therapist's Therapy Appointment Comment: On waitlist. 6month waitlist Greige Mender Name of Greige Mender: None Post Discharge Appointments Primary Care Physician Name Of Family Doctor/PCP: [facility] Cardenas Primary [facility] Date of Future Appointment with PCP: 11/16/24 Time of Appointment with PCP: 10:15 AM Provider Appointment Comment: New patient appointment. [address] [place] [address], [place] Contact Information Discharge Discharge Address: [address] [place] [address], [place], [place] [id number]
[2024-11-11] MEDS: ACETAMINOPHEN 325 MG TAB PO PRN (09:39)
--- NOTE | 2024-11-12 08:56 | Discharge Summary ---
Date of Service November 12, 2024 History of Present Illness She presents for psychiatric admission for worsening depression and SI with multiple possible plans. She notes "I just need my brain to calm down, it just goes and goes and goes". She notes "I'm not even fit to be around my kids right now because the smallest thing can trigger me to just stop". She notes how deeply she loves her children but feels they've felt like they have to "step on eggshells around me". She describes she can be quick to anger and that "I have to be right" and can be impulsive but also notes that she has become very irritable as the depression has worsened. She notes "I have a war in my head all day every day", she notes the thoughts are often about her being worthless or worrying that her will leave her. Describes that "recently it's been tearing down myself with my own mind". She notes by evening "I'm worn out and I can't do it anymore". Her depression has been worsening over the last year and over the last six months has significantly intensified. She endorses depressive symptoms including anhedonia, decreased motivation, self-guilt, helplessness, hopelessness, decreased energy, decreased appetite, and decreased sleep typically about 3 hours with sleep onset insomnia and multiple awakenings. SI started about 6 months ago but really worsened to the point of daily thoughts over the last month with thoughts of shooting herself or crashing the car. She has been having thoughts that her kids would be "better off without" her. She also endorses symptoms of anxiety including generalized worries, shakiness, easily overwhelmed and history of panic attacks but none recently. Sometimes gets sharp chest pain with intense anxiety. History of significant trauma and sometimes will have dreams and wake up in a startle. This has worsened as the depression has intensified and typically occurring about three times per week. She was recently prescribed sertraline about 1.5 weeks ago, she hasn't noticed any side effects nor benefits so far. Psychiatric ROS notable for no current nor history of symptoms of tsering, psychosis. History of difficulty eating at school when bullied and would often avoid breakfast and sometimes would throw up due to distress from the bullying. History of self-harm by cutting and biting, last occurred many years ago. Physical Exam Vital Signs (Past 24 Hours) Last Vital Signs Temp 36.7 C 02/21/25 06:00 Pulse 69 11/12/24 06:32 Resp 17 11/12/24 06:00 BP 103/66 11/12/24 06:32 Pulse Ox 99 11/12/24 06:00 O2 Del Method Room Air 11/12/24 06:00 Principal Diagnosis Major Depressive Disorder with anxious distress Psychiatric Data See daily stay summary. In short, patient was engaged with the social/therapeutic milieu of the unit, safety was maintained and the patient was cooperative with care. Medication changes included increase of sertraline to 50mg daily for MDD/KEIRA and initiation of mirtazapine 15mg HS for insomnia/anxiety/depression and they tolerated this well. A support session was held and safety plan was completed prior to discharge. They participated in safety planning and in discussions about ways to seek support and recognizing warning signs and utilizing coping skills. Reviewed ways to have their safety plan and contacts easily available should thoughts of SI re-emerge in the future. Reviewed importance of seeking emergency care should SI intensify, worsen or should they feel unsafe in the future which they agree to do. On the day of discharge they stated their mood was "excited" and remained future-oriented including spending time with her kids and , getting fresh air, relaxing and engaging in aftercare appointments for psychiatry, case management and eventually therapy. Day of Discharge Assessment Today the patient voices readiness for discharge. They note improvement in mood and anxiety. They deny thoughts of harm to self or others. Thoughts are organized and they are clinically improved from admission. There is no evidence of psychosis. They improved in the hospital with support and medication adjustments. They agree to take medications as prescribed and keep follow-up appointments. At the time of the discharge they are deemed to be stable and appropriate for outpatient level of care. They are not deemed to be at imminent risk of harm to self or others. They are aware of emergency and crisis services. Knows to call 911 or go to nearest emergency care center if in a crisis which cannot be handled as an outpatient. Suicide risk assessment: Acute risk is low given improvement in mood and denial of SI, lack of access to lethal means, improvement in sleep and hopefulness. Chronic risk is moderate given some non-modifiable risk factors: psychiatric co-morbid diagnoses, prior psychiatric hospitalization, childhood trauma but also with protective factors including good social support, sense of responsibility to family and social supports, outpatient care in place, positive coping skills, positive problem solving, willingness to engage with treatment, young children and self- observation. Counseled on ways to reduce acute and chronic risk including engaging with outpatient providers, using safety plan if needed, utilizing supports, taking medication, and using coping skills. Modifiable risk factors of SI, insomnia and depression were addressed during hospitalization through development of new coping skills, support meeting, safety planning, and medication adjustments. Discharge physical exam: See admission H&P, MSE per above and day of discharge summary. Overall, I spent a total of 35 minutes on this case including meeting with the patient, reviewing the chart, nursing report, multidisciplinary team meeting, discharge orders, anticipatory planning, safety planning, risk assessment and documentation. Transition of Care Transition Of Care Record: was reviewed with the patient Advance Directives Advance Directives Information Provided: Yes Advance Directives: No Mental Health Advance Directive: No Advance Directives on File: No Living Will: No Power of [place] Presser: No Advance Directives Reason:: Declines as Mental Health Visit. 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) Stable Relationships: Yes Supportive Family: Yes Good Rapport with Provider: Yes Discharge Data Lab Results 11/05/24 11/05/24 13:40 13:56 WBC 11.59 H RBC 5.13 Hgb 15.6 Hct 46.1 MCV 89.9 MCH 30.4 MCHC 33.8 RDW Std Deviation 41.0 RDW Coeff of [place] 12.5 Plt Count 420 H MPV 8.8 L Immature Gran % (Auto) 0.3 Neut % (Auto) 79.9 Lymph % (Auto) 13.4 [place] % (Auto) 5.0 Eos % (Auto) 0.9 Baso % (Auto) 0.5 Neut # (Auto) 9.26 H Lymph # (Auto) 1.55 [place] # (Auto) 0.58 Eos # (Auto) 0.11 Baso # (Auto) 0.06 Immature Gran # (Auto) 0.03 Sodium 140 Potassium 4.1 Chloride 106 Carbon Dioxide 26 Anion Gap 8 BUN 9 Creatinine 0.75 Est Cr Clr Drug Dosing 85.9 eGFR 111.84 BUN/Creatinine Ratio 12.0 Glucose 76 Calcium 9.5 Total Bilirubin 0.5 AST 21 ALT 23 Alkaline Phosphatase 40 Total Protein 7.7 Albumin 4.9 Globulin 2.8 Albumin/Globulin Ratio 1.8 TSH 0.737 Urine Color Yellow Urine Appearance Clear Urine pH 7.0 Ur Specific [place] 1.013 Urine Protein Negative Urine Glucose (UA) Negative Urine Ketones Negative Urine Blood Negative Urine Nitrite Negative Urine Bilirubin Negative Urine Urobilinogen Negative Ur Leukocyte Esterase Negative Urine Test Negative Salicylates < 3.0 L Urine Opiates Screen Neg Ur Methadone, Qual Neg Urine Fentanyl Screen Neg Acetaminophen < 3 L Urine Barbiturates Neg Ur Phencyclidine (PCP) Neg U Amphetamin/Meth Scrn Neg MDMA (Ecstasy) Screen Neg U Benzodiazepines Scrn Neg Ur Cocaine Metabolite Neg U Marijuana (THC) Screen Neg Ethyl Alcohol mg/dL < 10.0 SARS-CoV-2, RNA, NAAT NEGATIVE Hospital Course (1) Depression with suicidal ideation: (2) MDD (major depressive disorder), recurrent episode, severe: (3) KEIRA (generalized anxiety disorder): (4) Post traumatic stress disorder (PTSD): Plan 11/12/2024: Feels safe, desires and ready for discharge. 11/11/2024: Continue current medications. 11/10/2024: Continue current medications. Ongoing difficulty finding an outpatient therapist that has openings and accepts her insurance 11/09/2024: Continue current medications and tx plan. SW working on options for outpatient therapy-running into barriers of excessively long wait lists due to insurance coverage 11/08/2024: Continue current medications and tx plan. 11/07/2024: Continue current medications and tx plan 11/06/2024: [facility] mental health unit) on q15 min checks (behavioral with suicide precautions) for safety. The patient will participate in group, recreational, and milieu therapies and will be offered additional individual and family sessions as clinically appropriate. -sertraline 50mg daily -mirtazapine 15mg HS -symptom questionnaires: Sandra BPD, trauma questionnaire, CARLOS score -outpt therapy referrals-ideally tf-CBT focus Mental Health & Subst Abuse Tx Psychiatrist Name of Psychiatrist: Rosa Grissom Psychiatrist's Date Of Appointment With Psychiatric Provider: 11/16/24 Time of Appointment with Psychiatrist: 1:00pm Psychiatric Appointment Comment: rescheduled for longer appt. time (hospital f/u) Therapist Name of Therapist: [facility] The[facility]'s Therapy Appointment Comment: On waitlist. 6month waitlist Auto Appraiser Name of Auto Appraiser: [employer] Phone Number for Auto Appraiser: [phone] Auto Appraiser Release of Information: Obtained Post Discharge Appointments Primary Care Physician [facility] Date of Future Appointment with PCP: 11/16/24 Time of Appointment with PCP: 10:15 AM Provider Appointment Comment: New patient appointment. [address] [place] [address], [place] Contact Information Discharge Discharge [address] [address] [place] [address] Discharge Plan Discharge Items Patient Disposition: Home - Self-Care Reason For Visit: UNSPECIFIED DEPRESSIVE D/O Discharge Diagnosis: Major Depressive Disorder with anxious distress Activity: Resume your previous activity Non-emergency contact: Primary Care Provider and Aligning Checker Call non-emergency contact if: you have any medication questions and your symptoms worsen Follow-up/Referrals: PCP,NO [Primary Care Provider] - Diet: Regular Addtl Attending Provider Instructions: Optional mobile apps we discussed: -Suicide safety plan -Virtual Hope Box SPECIAL CARE INSTRUCTIONS: 1. Follow through with your scheduled aftercare appointments. If unable to keep an appointment, please call to reschedule. 2. Take your medication only as prescribed. Medication should not be changed or stopped without the approval of your doctor. In the event of worsening symptoms or concerns about side effects, contact your doctor immediately. 3. Utilize new healthy coping skills, anger management skills, and stress management skills learned during your hospitalization. Journal feelings and process them with a support person. Identify stressors or situations that may result in relapse, deterioration or inappropriate behaviors and develop a plan to deal with those issues. 4. If your coping skills are ineffective and you are in crisis, contact your outpatient providers for direction. If unable to reach your providers, please call the [facility] CRISIS LINE AT , go to the [facility] walk-in center at [address], [address], [place], or go to the closest Emergency Room. 5. Avoid alcohol and un-prescribed drugs. 6. You have been provided with the Mental Health Advance Directives Pamphlet for your review. 7. Your condition is stable for discharge to outpatient level of care, but recovery is an ongoing process. Ifthoughts to harm yourself or others return, follow the safety plan developed during your stay. Planning for a safe return home includes securing weapons. Our treatment team recommends weaponsbe removed from the home until your outpatient provider reassesses your progress. In rare cases where the items themselvescannot be removed, guns and ammunitionshould be secured separatelyand keys stored by a reliable personoutside of the home. If you were admitted on an involuntary commitment, the police or other legal authorities may be involved in this process. AFTERCARE APPOINTMENTS: * Please call your insurance company prior to your scheduled appointment to confirm your aftercare providers are covered. Take your insurance information to your [employer]. WHO TO CALL AND WHEN: Medical Emergencies: For questions or emergencies related to your hospital stay, please contact the Inpatient Behavioral Health Unit at [phone]. A machine printer is on-call 14/04 for the Behavioral Health Unit for emergencies At any time you feel your situation is an emergency, you may also call 911 immediately. National Crisis Hotline: 988 Pending Studies at Discharge: No Stand-Alone Forms: My [facility] Medications and DC Order Prescriptions: New mirtazapine 15 mg Tablet 15 mg PO HS 30 Days Qty: 30 0RF sertraline 50 mg Tablet 50 mg PO DAILY 30 Days Qty: 30 0RF Discontinued sertraline [Zoloft] 25 mg Tablet 25 mg PO DAILY Discharge Orders: Discharge Order (Routine); Ordered 11/12/24 Ordered By: Ade Bran Admission Data Admit Date/Time: 11/05/24 18:26 Attending Provider: Ade Bran Admit Provider: Ade Bran Primary Care Provider: PCP,NO Other Interventions: Discharge Summary Assessment (RN) Last Done: 11/12/24 12:12 PSY Interdisciplinary Discharge Planning Last Done: 11/12/24 13:20 Coding Level of Care Code 90720 D/C day mgmt > 30 min Diagnoses Depression with suicidal ideation F32.A; R45.851 MDD (major depressive disorder), recurrent episode, severe F33.2 KEIRA (generalized anxiety disorder) F41.1 Post traumatic stress disorder (PTSD) F43.10
== END 2024-11-12 13:35 | disposition home or self-care (01) | DRG 885 ==
LOC: ED 13:26 → 3S 18:26